=== PATIENT | male | born 1955 | race Caucasian/White ===

== ENCOUNTER 2018-04-01 07:57 | Day surgery (SDC) | payer BC ==
--- NOTE | 2018-03-31 16:26 | EKG ---
Test Date: 2018-03-31 Test Time: 15:57:11 Asset Management Analyst: JORDI MEASUREMENT RESULTS: Intervals: Rate: 84 KS: 148 QRSD: 82 QT: 368 QTc: 434 [place]: P: 62 KS: 148 QRS: -56 T: 49 INTERPRETIVE STATEMENTS: Normal sinus rhythm Low voltage QRS Left anterior fascicular block Possible Lateral infarct, age undetermined Inferior infarct, age undetermined Abnormal ECG Compared to ECG 01/22/2017 22:30:40 Low QRS voltage now present Left anterior fascicular block now present Myocardial infarct finding now present Left-axis deviation no longer present Electronically Signed On 03-31-18 16:25:40 CDT by James Nayak
--- NOTE | 2018-03-31 16:40 | RAD REPORT ---
EXAM DESCRIPTION: Jacky Castañeda (2 Views)03/31/2018 4:34 pm CLINICAL HISTORY: Chest abscess/preop COMPARISON: November 2016 FINDINGS: The lungs appear clear of acute infiltrate. The heart is normal size IMPRESSION: No acute abnormalities displayed
--- OUTSIDE RECORDS SUMMARY | 2018-04-01 08:01 | XMS REPORT | Clinical Summary ---
:1955 Author Organization [facility] Address [address] [place] [address] Phone Care Team Providers Name Role Phone Unavailable Primary Care Provider Unavailable Allergies No Known Allergies Current Medications Prescription Sig. Disp. Refills Start Date End Date Status aspirin 81 MG EC Take 81 mg by mouth Active tablet daily. loratadine (CLARITIN) Take 10 mg by mouth Active 10 mg tablet daily. rosuvastatin (CRESTOR) Take 10 mg by mouth Active 10 MG tablet once at bedtime. tamsulosin (FLOMAX) Take 0.4 mg by mouth Active 0.4 mg Cp24 24 hr nightly. capsule methocarbamol Take 750 mg by mouth 4 Active (ROBAXIN) 750 MG (four) times daily as tablet needed. metFORMIN (GLUCOPHAGE) Take 500 mg by mouth 2 Active 500 MG tablet (two) times daily with breakfast and dinner. lansoprazole Take 30 mg by mouth Active (PREVACID) 30 MG nightly. capsule metoprolol (LOPRESSOR) Take 25 mg by mouth 2 Active 25 MG tablet (two) times daily. melatonin 3 mg Tab Take 5 mg by mouth Active every 7 days. ibuprofen Take 400 mg by mouth 2 Active (ADVIL,MOTRIN) 400 MG (two) times daily. tablet insulin detemir Inject 60 Units Active (LEVEMIR) 100 unit/mL subcutaneously 2 (two) (3 mL) InPn injection times daily. nitroglycerin Place 0.4 mg under the Active (NITROSTAT) 0.4 MG SL tongue every 5 (five) tablet minutes as needed for Chest pain Put 1 pill under tongue every 5min as needed for chest pain.No more than 3 doses in 15min.Call 911 if pain is unrelieved 5min after 1st dose . MAGNESIUM CHLORIDE Take 64 mg by mouth 2 Active (SLOW-MAG ORAL) (two) times daily. fesoterodine (TOVIAZ) Take 8 mg by mouth Active 8 mg Tb24 daily. CALCIUM/FA/MULTIVIT-NH Take 1,500 Units by Active N (VIACTIV mouth nightly. 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 Lumbar pain 07/29/2016 CAD (coronary artery disease) 07/29/2016 Mass in epidural space 03/22/2016 HTN (hypertension) 03/22/2016 DM (diabetes mellitus) ([facility]) 03/22/2016 Prostate cancer, primary, with metastasis from prostate to other site 2015 ([facility]) Constipation 03/22/2016 Immunizations Name Dates Previously Given Next Due Influenza Three-TIV PF 5+ YR 07/31/2016 PPD Test 03/23/2016 Social History Tobacco Use Types Packs/Day Years Used Date Former Smoker Smokeless Tobacco: Never Used Alcohol Use Drinks/Week oz/Week Comments No Sex Assigned at Date Recorded Not on file Last Filed Vital Signs Not on file Plan of Treatment Not on file Implants Implanted Type Area Industrial Sales Representative Device Expiration Model / Identifier Date Serial / Lot Matrix Floseal Hemo W/O Ndl 10 [id number] - [id number] Cement/F N/A: Spine SAAB:[id number] [id number] / Implanted: Qty: 1 on 03/26/2016 by Francesco Shah MD iller/Justin Lumbar / hesive [id number] Results Not on fileafter 03/31/2017
[2018-04-01] MEDS ORDERED: CEFAZOLIN/SWI 1gm 1 GM/10 ML SYR ONE (08:13)
[2018-04-01] MEDS ORDERED: Ringers Lactate 1,000 ML IV ONE (08:13)
[2018-04-01] MEDS ORDERED: PROPOFOL 200 MG/20 ML VIAL IV ONE (08:20)
[2018-04-01] MEDS ORDERED: FENTANYL CITR 100 MCG/2 ML ONE (08:20)
[2018-04-01] MEDS ORDERED: MIDAZOLAM HCL 2 MG/2 ML INJ ONE (08:20)
[2018-04-01] MEDS ORDERED: LIDOCAINE 2% INJ, MPF 2 ML 1 ML ONE (08:21)
[2018-04-01] MEDS ORDERED: BUPIVACAINE 0.5% PF 10 ML VIAL ONE (08:22)
[2018-04-01] MEDS ORDERED: ONDANSETRON HCL 40 MG/20 ML VIAL ONE (09:28)
[2018-04-01 12:41] VITALS: BP 110/60; TEMP 97.8; O2SAT 99
--- NOTE | 2018-04-01 21:42 | OP ---
Date of Procedure: 04/01/2018 Surgeon: Omari Fischer MD Preoperative Diagnosis: Infected sebaceous cyst, chest wall. Postoperative Diagnosis: Infected sebaceous cyst, chest wall. Procedure: Wide excision of infected sebaceous cyst, chest wall, 8 x 4 cm with layered closure Estimated Blood Loss: Minimal. Specimen: C and S and cyst. Finding: As above. Anesthesia: General. Complications: None. Disposition: The patient tolerated the procedure in stable condition and was taken to recovery in go od general condition. Procedure In Detail: The patient was brought to the OR and placed in supine position. General anest hesia was begun. The patient was prepped and draped in usual sterile fashion and then Marcaine 0.5% was infiltrated locally. Infected cyst was approximately 4 x 6 cm in diameter, and this was excised with an incision 8 x 4 cm to include the entire cyst and contents. There was pus in it, and cultures were done, but the entire cyst was excised completely. Flaps were created. Wound irrigated. Bleed ing controlled with cautery. Then, 2-0 chromic used to close partially the wound proximal and distal to allow for smaller wound for secondary healing and then 3-0 nylon used to close the skin layer on the edges but the middle of the wound was left open. Wet-to-dry normal saline dressing change arielleie d. The patient tolerated the procedure in stable condition and was taken to recovery room in good ge neral condition. Discharge Note: The patient will go to Day Surgery and home when stable. Disposition: Home. Condition: Stable. Discharge Instructions: Resume home medications and diet. Activity as tolerated. No heavy lifting. Remove outer dressing in a.m. Levaquin 500 mg p.o. daily. Tylenol No. 3 one tablet p.o. q.4 p.r.n . pain. Wet-to-dry normal saline dressing changes daily. Follow up in my office in 10 to 14 days. MALISSA/PHILL Voice ID: [id number] Report ID: [id number]
== END 2018-04-01 12:50 | disposition home or self-care (01) ==
LOC: OR 07:57
PROVIDERS: ATTEND Surgery
PROC: 0WB8XZZ Excision of Chest Wall, External Approach (ICD-10-PCS; principal; 2018-04-01 09:15)
DX: L72.0 Epidermal cyst (principal)
CPT/HCPCS: 71046; 87070; 87075; 87205; 88304; 93005; J0690; J2250; J2405; J3010; J3490